=== PATIENT | male | born 2000 | race Two or more races ===

== ENCOUNTER 2023-07-19 15:52 | Emergency (ER) | payer MEDICAID, OTHER ==
[~2023-07-19] VITALS: Ht 170.2 cm; Wt 78.0 kg
[2023-07-19 16:50] LABS: Urine Bacteria NONE SEEN /hpf (None Seen); Urine Blood Negative /uL (Negative); Urine Clarity Clear (Clear); Urine Color Yellow (Yellow); Urine Mucus FEW (None Seen); Urine Protein, UAD Negative (Negative); Urine Specific Gravity 1.013 (1.001-1.035); Urine Urobilinogen Normal (Negative); Urine WBC <1 /hpf (0 - 3)
[2023-07-19 17:24] LABS: Amphetamine Screen, Urine Pos (NEGATIVE)
[2023-07-19 17:25] LABS: Barbiturate Scree,Urine Neg (NEGATIVE); Benzodiazephine Screen, Urine Neg (NEGATIVE); Cannabinoid Screen, Urine Pos (NEGATIVE); Cocaine Screen, Urine Neg (NEGATIVE); Opiate Scree,Urine Neg (NEGATIVE); Phencyclidine Screen, Urine Neg (NEGATIVE)
[2023-07-19 18:54] VITALS: BP 165/89; PULSE 104; RESP 20; TEMP 97.9; O2SAT 94
[2023-07-19] MEDS ORDERED: LORazepam 0.5 MG TAB PO ONE (19:15)
[2023-07-19] MEDS ORDERED: HYDR50CA PO (19:16)
== END 2023-07-19 19:45 | disposition home or self-care (01) ==
LOC: EDBD 15:52 → ER 15:52
DX: F41.9 Anxiety disorder, unspecified (principal); F12.10 Cannabis abuse, uncomplicated; F15.10 Other stimulant abuse, uncomplicated; F32.9 Major depressive disorder, single episode, unspecified; Z79.899 Other long term (current) drug therapy
CPT/HCPCS: 80307; 81001